=== PATIENT | male | born 1990 | race Caucasian/White ===

== ENCOUNTER 2024-09-03 21:46 | Emergency (ER) | payer SELFPAY ==
[~2024-09-03] VITALS: Ht 182.9 cm; Wt 74.8 kg
[2024-09-03] MEDS ORDERED: CYCL5TAB PO (23:58)
[2024-09-04 00:11] VITALS: BP 140/96; TEMP 208.2; O2SAT 99
== END 2024-09-04 00:12 | disposition home or self-care (01) ==
LOC: ER 21:55
DX: M79.642 Pain in left hand (principal); M54.50 Low back pain, unspecified; V43.52XA Car driver injured in collision with other type car in traffic accident, initial encounter; Y93.89 Activity, other specified; Y92.89 Other specified places as the place of occurrence of the external cause; Y99.8 Other external cause status
CPT/HCPCS: 73130-TC